=== PATIENT | female | born 1955 | race American Indian/Alaskan Native ===

== ENCOUNTER 2018-09-30 17:10 | Observation (INO) | payer MEDICAID, OTHER ==
[2018-09-30 17:24] VITALS: BMI 21.2
--- NOTE | 2018-09-30 18:16 | ED PDOC ---
Arrival/HPI - History of Present Illness Narrative History of Present Illness (Text): 09/30/18 18:16 Patient is a 63-year-old female with a past medical history significant for early onset dementia. Patient is unable to provide a meaningful history. However, she does denies how do you travel with your head. Patient is only complaining of left hip pain, and right lower back pain at this time. When asked about the fall, patient reports she tripped without any loss of consciousness or trauma to her head. Patient den ies any dizziness, or visual changes. As per EMS report, patient was found down on sidewalk by bystander. Family at bedside reports that patient will frequently wander out of the house. They report that she has been wandering out and getting lost with increasing frequency as of late. <Larry Zheng - Last Filed: 09/30/18 18:23> <Meseret Pinedo - Last Filed: 09/30/18 19:02> - General Chief Complaint: Trauma Time Seen by Provider: 09/30/18 17:20 Past Medical History - Provider Review Nursing Documentation Reviewed: Yes - Reproductive Menopause: Yes - Psychiatric Hx Substance Use: No - Anesthesia Hx Anesthesia: No <Larry Zheng - Last Filed: 09/30/18 18:23> Family/Social History - Physician Review Nursing Documentation Reviewed: Yes Family/Social History: Unknown Family HX Smoking Status: Never Smoked Hx Alcohol Use: No Hx Substance Use: No <Larry Zheng - Last Filed: 09/30/18 18:23> Allergies/Home Meds <Larry Zheng - Last Filed: 09/30/18 18:23> <Meseret Pinedo - Last Filed: 09/30/18 19:02> Allergies/Adverse Reactions: Allergies No Known Allergies Allergy (Verified 09/30/18 17:24) Home Medications: Home Meds Medication Instructions Recorded Confirmed No Known Home Med 09/30/18 09/30/18 Review of Systems - Review of Systems Constitutional: Normal Eyes: Normal ENT: Normal Respiratory: Normal Cardiovascular: Normal Gastrointestinal: Normal Genitourinary Female: Normal Musculoskeletal: Normal Skin: Normal Neurological: Normal Endocrine: Normal Hemo/Lymphatic: Normal Psychiatric: Normal <Larry Zheng - Last Filed: 09/30/18 18:23> Physical Exam Vital Signs Temp Pulse Resp BP Pulse Ox 02/12/19 17:51 99.3 F 09/30/18 17:10 94 H 18 159/87 H 100 Temperature: Afebrile Blood Pressure: Hypertensive Pulse: Regular Respiratory Rate: Normal Appearance: Positive for: Well-Appearing, Non-Toxic, Comfortable Pain Distress: None Mental Status: Positive for: Alert and Oriented X 3 - Systems Exam Head: Present: Atraumatic, Normocephalic Pupils: Present: PERRL Extroacular Muscles: Present: EOMI Conjunctiva: Present: Normal Mouth: Present: Moist Mucous Membranes Neck: Present: Normal Range of Motion Respiratory/Chest: Present: Clear to Auscultation, Good Air Exchange. No: Respiratory Distress, Accessory Muscle Use Cardiovascular: Present: Regular Rate and Rhythm, Normal S1, S2. No: Murmurs Abdomen: No: Tenderness, Distention, Peritoneal Signs Back: Present: Normal Inspection Upper Extremity: Present: Normal Inspection. No: Cyanosis, Edema Lower Extremity: Present: Other (Distal pulses intact bilateral lower extremity, capillary refill is slightly delayed, significant temperature difference is noted at distal foot versus ankle, of note patient came in wearing wet sock) Neurological: Present: GCS=15, CN II-XII Intact, Speech Normal, Other (Patient is tangential, and requires significant re-orientation. History that patient provides is not accurate to a true events.) Skin: Present: Warm, Dry, Normal Color. No: Rashes Psychiatric: Present: Alert, Oriented x 3, Normal Insight, Normal Concentration <Larry Zheng - Last Filed: 09/30/18 18:23> Vital Signs Temp Pulse Resp BP Pulse Ox 09/30/18 17:51 99.3 F 09/30/18 17:10 94 H 18 159/87 H 100 <Meseret Pinedo - Last Filed: 09/30/18 19:02> Medical Decision Making ED Course and Treatment: 09/30/18 18:32 EKG within normal limits no ischemic changes noted CT head, chest x-ray pending Troponin, CBC, CMP pending <Larry Zheng - Last Filed: 09/30/18 18:23> - Lab Interpretations Lab Results: PT 12.9 SECONDS (9.4-12.5) H 09/30/18 18:20 INR 1.16 09/30/18 18:20 APTT 32.3 Seconds (26.9-38.3) 09/30/18 18:20 Total Bilirubin 1.1 mg/dL (0.2-1.3) 09/30/18 18:20 AST 44 U/L (14-36) H 09/30/18 18:20 ALT 26 U/L (7-56) 09/30/18 18:20 Alkaline Phosphatase 101 U/L (38-126) 09/30/18 18:20 Total Protein 7.6 g/dL (5.8-8.3) 09/30/18 18:20 Albumin 4.3 g/dL (3.0-4.8) 09/30/18 18:20 Globulin 3.4 gm/dL 09/30/18 18:20 Albumin/Globulin Ratio 1.3 (1.1-1.8) 09/30/18 18:20 Urine Color Yellow (YELLOW) 09/30/18 18:20 Urine Appearance Clear (CLEAR) 09/30/18 18:20 Urine pH 6.0 (4.7-8.0) 09/30/18 18:20 Ur Specific [place] 1.015 (1.005-1.035) 09/30/18 18:20 Urine Protein Negative mg/dL (<30 mg/dL) 09/30/18 18:20 Urine Glucose (UA) Negative mg/dL (NEGATIVE) 09/30/18 18:20 Urine Ketones Negative mg/dL (NEGATIVE) 09/30/18 18:20 Urine Blood Small (NEGATIVE) H 09/30/18 18:20 Urine Nitrate Negative (NEGATIVE) 09/30/18 18:20 Urine Bilirubin Negative (NEGATIVE) 09/30/18 18:20 Urine Urobilinogen 0.2 E.U./dL (<1 E.U./dL) 09/30/18 18:20 Ur Leukocyte Esterase Small Anurag/uL (NEGATIVE) H 09/30/18 18:20 Urine RBC 5 - 10 /hpf (0-2) H 09/30/18 18:20 Urine WBC 10 - 15 /hpf (0-6) H 09/30/18 18:20 Ur Epithelial Cells 6 - 8 /hpf (0-5) H 09/30/18 18:20 - RAD Interpretation Radiology Orders: 09/30/18 18:12 HEAD W/O CONTRAST [CT] Stat 09/30/18 18:14 CHEST PORTABLE [RAD] Stat - Transfer of Care Patient signed out to Dr:: Arturo Pending Labs:: TSH Pending radiology studies:: CT brain/cxr Other: disposition <Meseret Pinedo - Last Filed: 09/30/18 19:02> - PA / OFFICE COPY SELECTOR / Resident Statement MD/DO has reviewed & agrees with the documentation as recorded. MD/DO has examined the patient and agrees with the treatment plan. <Meseret Pinedo - Last Filed: 09/30/18 19:02> Disposition/Present on Arrival - Present on Arrival History of DVT/PE: No History of Uncontrolled Diabetes: No Urinary Catheter: No History of Decub. Ulcer: No History Surgical Site Infection Following: None <Larry Zheng - Last Filed: 09/30/18 18:23> - Present on Arrival Any Indicators Present on Arrival: No - Disposition Have Diagnosis and Disposition been Completed?: Yes Disposition Time: 19:02 <Meseret Pinedo - Last Filed: 09/30/18 19:02> - Disposition Diagnosis: Altered mental status, Fall Condition: STABLE Forms: [employer] ([place])
[2018-09-30 18:26] LABS: BASO # 0.03 K/mm3 (0.0-2.0); BASO % 0.3 % (0.0-3.0); HEMOGLOBIN 11.9 g/dL (12.0-16.0); LYMPH # 0.8 (1.2-3.4); LYMPH % 7.2 % (22.0-35.0); MEAN CELL VOLUME 92.1 fl (80.0-105.0); MEAN CORPUSCULAR HEMOGLOBIN 31.2 pg (25.0-35.0); MEAN CORPUSCULAR HGB CONC 33.8 g/dl (31.0-37.0); MONO # 0.3 (0.1-0.6); MONO % 2.7 % (1.0-6.0); RBC 3.82 10^6/uL (3.5-6.1); RED CELL DISTRIBUTION WIDTH 13.6 % (11.5-14.5); WHITE BLOOD COUNT 11.4 10^3/uL (4.5-11.0)
[2018-09-30 18:31] LABS: URINE APPEARANCE CLEAR (CLEAR); URINE BILIRUBIN NEGATIVE (NEGATIVE); URINE BLOOD SMALL (NEGATIVE); URINE COLOR YELLOW (YELLOW); URINE GLUCOSE (UA) NEGATIVE (NEGATIVE); URINE LEUKOCYTE ESTERASE SMALL Leu/uL (NEGATIVE); URINE PROTEIN NEGATIVE mg/dL (<30 mg/dL); URINE UROBILINOGEN 0.2 E.U./dL (<1 E.U./dL)
[2018-09-30 18:35] LABS: INR 1.16; PARTIAL THROMBOPLASTIN TIME 32.3 Seconds (26.9-38.3); PROTHROMBIN TIME 12.9 SECONDS (9.4-12.5)
[2018-09-30 18:39] LABS: ALB/GLOB RATIO 1.3 (1.1-1.8); ALBUMIN 4.3 g/dL (3.0-4.8); ALT/SGPT 26 U/L (7-56); AST/SGOT 44 U/L (14-36); BLOOD UREA NITROGEN 11 mg/dL (7-21); CALCIUM 9.8 mg/dL (8.4-10.5); GFR NON-AFRICAN AMERICAN > 60
[2018-09-30 18:49] LABS: TROPONIN I 0.05 ng/mL
[2018-09-30 19:07] LABS: CK-MB 3.5 ng/mL (0.0-3.6)
[2018-09-30] MEDS ORDERED: cefTRIAXone 1 gm 1 GM/100 ML BAG IVPB STA (19:09)
--- NOTE | 2018-09-30 19:11 | ED PDOC ---
Physical Exam Vital Signs Reviewed: Yes Vital Signs Temp Pulse Resp BP Pulse Ox 09/30/18 17:51 99.3 F 09/30/18 17:10 94 H 18 159/87 H 100 Temperature: Afebrile Blood Pressure: Normal Pulse: Regular Respiratory Rate: Normal Appearance: Positive for: Well-Appearing, Non-Toxic, Comfortable Pain Distress: None Mental Status: Positive for: other (AAx2) Finger Stick Blood Glucose: 114 - Systems Exam Head: Present: Atraumatic, Normocephalic Pupils: Present: PERRL Extroacular Muscles: Present: EOMI Conjunctiva: Present: Normal Mouth: Present: Moist Mucous Membranes Respiratory/Chest: Present: Clear to Auscultation, Good Air Exchange. No: Respiratory Distress, Accessory Muscle Use Cardiovascular: Present: Regular Rate and Rhythm, Normal S1, S2. No: Murmurs Abdomen: No: Tenderness, Distention, Peritoneal Signs Upper Extremity: Present: Normal Inspection. No: Cyanosis, Edema Lower Extremity: Present: Other (Distal pulses intact) Neurological: Present: Other (Limited secondary to dementia) Skin: Present: Warm, Dry, Normal Color. No: Rashes Psychiatric: Present: Alert Medical Decision Making ED Course and Treatment: 09/30/18 19:10 Case endorsed to me by Dr. Pinedo, who evaluated patient with resident, for pending Labs, Imaging, reassessment and final disposition. Patient is a 63 year old female who presented to the ED earlier s/p fall. Patient is currently resting in bed in no acute distress. Patient presents no new medical complaints. 09/30/18 19:22 CT of head reviewed by radiologist, shows no acute intracranial abnormality. 09/30/18 20:[address] Massey and medical operations supervisor, who aware and agree with plan. Accepts pt in hospitalist service. Pt will go to Telemetry for AMS, el evated troponin, and UTI. - Lab Interpretations Lab Results: PT 12.9 SECONDS (9.4-12.5) H 09/30/18 18:20 INR 1.16 09/30/18 18:20 APTT 32.3 Seconds (26.9-38.3) 09/30/18 18:20 Troponin I 0.05 ng/mL 09/30/18 18:20 Total Bilirubin 1.1 mg/dL (0.2-1.3) 09/30/18 18:20 AST 44 U/L (14-36) H 09/30/18 18:20 ALT 26 U/L (7-56) 09/30/18 18:20 Alkaline Phosphatase 101 U/L (38-126) 09/30/18 18:20 Total Protein 7.6 g/dL (5.8-8.3) 09/30/18 18:20 Albumin 4.3 g/dL (3.0-4.8) 09/30/18 18:20 Globulin 3.4 gm/dL 09/30/18 18:20 Albumin/Globulin Ratio 1.3 (1.1-1.8) 09/30/18 18:20 Urine Color Yellow (YELLOW) 09/30/18 18:20 Urine Appearance Clear (CLEAR) 09/30/18 18:20 Urine pH 6.0 (4.7-8.0) 09/30/18 18:20 Ur Specific [place] 1.015 (1.005-1.035) 09/30/18 18:20 Urine Protein Negative mg/dL (<30 mg/dL) 09/30/18 18:20 Urine Glucose (UA) Negative mg/dL (NEGATIVE) 09/30/18 18:20 Urine Ketones Negative mg/dL (NEGATIVE) 09/30/18 18:20 Urine Blood Small (NEGATIVE) H 09/30/18 18:20 Urine Nitrate Negative (NEGATIVE) 09/30/18 18:20 Urine Bilirubin Negative (NEGATIVE) 09/30/18 18:20 Urine Urobilinogen 0.2 E.U./dL (<1 E.U./dL) 09/30/18 18:20 Ur Leukocyte Esterase Small Anurag/uL (NEGATIVE) H 09/30/18 18:20 Urine RBC 5 - 10 /hpf (0-2) H 09/30/18 18:20 Urine WBC 10 - 15 /hpf (0-6) H 09/30/18 18:20 Ur Epithelial Cells 6 - 8 /hpf (0-5) H 09/30/18 18:20 - RAD Interpretation Radiology Orders: 09/30/18 18:12 HEAD W/O CONTRAST [CT] Stat 09/30/18 18:14 CHEST PORTABLE [RAD] Stat - Scribe Statement The provider has reviewed the documentation as recorded by the Scribe Delaney Seaman. All medical record entries made by the To[place]armita were at my direction and personally dictated by me. I have reviewed the chart and agree that the record accurately reflects my personal performance of the history, physical exam, medical decision making, and the department course for this patient. I have also personally directed, reviewed, and agree with the discharge instructions and disposition. Disposition/Present on Arrival - Present on Arrival Any Indicators Present on Arrival: No History of DVT/PE: No History of Uncontrolled Diabetes: No Urinary Catheter: No History of Decub. Ulcer: No History Surgical Site Infection Following: None - Disposition Have Diagnosis and Disposition been Completed?: Yes Diagnosis: Altered mental status, Fall Disposition: HOSPITALIZED Disposition Time: 20:25 Patient Problems: Current Active Problems Problem Status Onset Altered mental status Acute Fall Acute Condition: STABLE
[2018-09-30 19:20] LABS: BARBITURATES, UR NEGATIVE (NEGATIVE); BENZODIAZEPINES, UR NEGATIVE (NEGATIVE); OPIATES, UR NEGATIVE (NEGATIVE); PHENCYCLIDINE, UR NEGATIVE (NEGATIVE)
[2018-09-30] MEDS ORDERED: Metoprolol Succinate 25 mg XL Tab PO STA (20:16)
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
[2018-09-30 23:14] VITALS: O2SAT 100
[2018-10-01 06:19] VITALS: BP 138/79
[2018-10-01 07:03] LABS: BASO # 0.03 K/mm3 (0.0-2.0); BASO % 0.5 % (0.0-3.0); HEMOGLOBIN 11.4 g/dL (12.0-16.0); LYMPH # 1.5 (1.2-3.4); LYMPH % 23.5 % (22.0-35.0); MEAN CELL VOLUME 92.5 fl (80.0-105.0); MEAN CORPUSCULAR HEMOGLOBIN 30.5 pg (25.0-35.0); MEAN CORPUSCULAR HGB CONC 32.9 g/dl (31.0-37.0); MEAN PLATELET VOLUME 9.8 fl (7.0-11.0); MONO # 0.4 (0.1-0.6); MONO % 5.8 % (1.0-6.0); RBC 3.74 10^6/uL (3.5-6.1); RED CELL DISTRIBUTION WIDTH 13.8 % (11.5-14.5); WHITE BLOOD COUNT 6.2 10^3/uL (4.5-11.0)
[2018-10-01 07:31] LABS: TROPONIN I 0.07 ng/mL
[2018-10-01 07:39] LABS: BLOOD UREA NITROGEN 9 mg/dL (7-21); CALCIUM 9.7 mg/dL (8.4-10.5); GFR NON-AFRICAN AMERICAN > 60; HDL CHOLESTEROL 82 mg/dL (29-60)
[2018-10-01 07:51] LABS: LDL CHOLESTEROL 98 mg/dL (0-129)
[2018-10-01 07:57] LABS: IRON 51 ug/dL (45-180)
[2018-10-01 07:58] LABS: CK-MB 5.9 ng/mL (0.0-3.6)
[2018-10-01] MEDS ORDERED: Metoprolol Succinate 25 mg XL Tab PO SCH (08:00)
[2018-10-01 08:06] LABS: % IRON SATURATION 17 % (20-55); TOTAL IRON BINDING CAPACITY 307 ug/dL (265-497)
[2018-10-01] MEDS ORDERED: Potassium Chloride 20 mEq ER Tab PO STA (08:43)
--- NOTE | 2018-10-01 08:49 | CT ---
Date of service: 09/30/2018 PROCEDURE: CT HEAD WITHOUT CONTRAST. HISTORY: fall/ ams COMPARISON: None available. TECHNIQUE: Axial computed tomography images were obtained through the head/brain without intravenous contrast. Radiation dose: Total exam DLP = 918.82 mGy-cm. This CT exam was performed using one or more of the following dose reduction techniques: Automated exposure control, adjustment of the mA and/or kV according to patient size, and/or use of iterative reconstruction technique. FINDINGS: HEMORRHAGE: No intracranial hemorrhage. BRAIN: There are mild chronic microangiopathic changes. There is no mass, mass effect or abnormal extra-axial fluid collection. There is no territorial infarction. The midline sagittal structures are normal. VENTRICLES: There is moderate age-related global parenchymal volume loss and proportionate enlargement of the ventricles and cortical sulci. CALVARIUM: There is no calvarial fracture or extracranial soft tissue swelling. PARANASAL SINUSES: Predominantly clear. MASTOID AIR CELLS: Predominantly clear. OTHER FINDINGS: None. IMPRESSION: No acute intracranial abnormality. Mild chronic microangiopathic changes and mild age-related global parenchymal volume loss.
--- NOTE | 2018-10-01 09:33 | CARD ---
APPROVED REPORT Date of service: 09/30/2018 EKG Measurement Heart [id number] <Conclusion> Normal sinus rhythm Normal ECG
--- NOTE | 2018-10-01 09:46 | RAD ---
Date of service: 09/30/2018 HISTORY: fall COMPARISON: No prior. FINDINGS: LUNGS: No active pulmonary disease. PLEURA: No significant pleural effusion identified, no pneumothorax apparent. CARDIOVASCULAR: No aortic atherosclerotic calcification present. Normal cardiac size. No pulmonary vascular congestion. OSSEOUS STRUCTURES: No significant abnormalities. VISUALIZED UPPER ABDOMEN: Normal. OTHER FINDINGS: None. IMPRESSION: No active disease.
--- NOTE | 2018-10-01 11:34 | RAD ---
PROCEDURE: Left Hand Radiographs. HISTORY: Contracted 3rd, 4th and 5th fingers, r/o fractures COMPARISON: None. FINDINGS: BONES: There is diffuse bone demineralization. There is no acute displaced fracture or bone destruction. There is fixed flexion deformities in the 3rd and 4th digits. JOINTS: Normal. No osteoarthritic changes. SOFT TISSUES: Normal. OTHER FINDINGS: None. IMPRESSION: Fixed flexion deformities in the 3rd and 4th digits. No acute fracture or dislocation.
[2018-10-01 12:43] VITALS: RESP 18; TEMP 98
[2018-10-01 13:15] LABS: FERRITIN 57.8 ng/mL
[2018-10-01 13:45] LABS: FOLATE 19.2 ng/mL
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
[2018-10-01 14:24] VITALS: PULSE 69
[2018-10-01 14:35] LABS: URINE BILIRUBIN NEGATIVE (NEGATIVE); URINE BLOOD SMALL (NEGATIVE); URINE GLUCOSE (UA) NEGATIVE (NEGATIVE); URINE LEUKOCYTE ESTERASE NEGATIVE Leu/uL (NEGATIVE); URINE PROTEIN NEGATIVE mg/dL (<30 mg/dL); URINE UROBILINOGEN 0.2 E.U./dL (<1 E.U./dL)
[2018-10-01 14:38] LABS: URINE APPEARANCE CLEAR (CLEAR); URINE COLOR YELLOW (YELLOW)
[2018-10-01 14:41] LABS: URINE BACTERIA MOD /hpf; URINE WBC 0 - 2 /hpf (0-6)
--- NOTE | 2018-10-01 18:02 | CP.PCM.DIS ---
<Chetan Santos - Last Filed: 10/01/18 17:57> Provider - Provider Date of Admission: 09/30/18 19:28 Attending physician: Dustin Chaidez MD Primary care physician: none Consults: 09/30/18 20:23 Neurology Consult Routine Comment: Consulting Provider: Fabrizio Chiu Consulting Physician: Fabrizio Chiu Reason for Consult: AMS/dementia 09/30/18 22:57 Nursing Referral for Palliative Care Routine Comment: Pallitive score: 5 Physician Instructions: Reason For Exam: Protocol 09/30/18 23:00 Case Management Referral Routine Comment: Daughter request for assistance at home. Physician Instructions: Reason For Exam: Protocol Reason for Referral: Discharge Planning 09/30/18 23:04 Social Work Referral Routine Comment: [place] Risk Assessment score: 8 Physician Instructions: Reason For Exam: Protocol Time Spent in preparation of Discharge (in minutes): 60 Diagnosis - Discharge Diagnosis (1) Fall Status: Acute Hospital Course - Lab Results Lab Results: Most Recent Lab Values WBC 6.2 10^3/uL (4.5-11.0) D 10/01/18 06:30 RBC 3.74 10^6/uL (3.5-6.1) 10/01/18 06:30 Hgb 11.4 g/dL (12.0-16.0) L 10/01/18 06:30 Hct 34.6 % (36.0-48.0) L 10/01/18 06:30 MCV 92.5 fl (80.0-105.0) 10/01/18 06:30 MCH 30.5 pg (25.0-35.0) 10/01/18 06:30 MCHC 32.9 g/dl (31.0-37.0) 10/01/18 06:30 RDW 13.8 % (11.5-14.5) 10/01/18 06:30 Plt Count 254 10^3/uL (120.0-450.0) 10/01/18 06:30 MPV 9.8 fl (7.0-11.0) 10/01/18 06:30 Neut % (Auto) 70.2 % (50.0-68.0) H 10/01/18 06:30 Lymph % (Auto) 23.5 % (22.0-35.0) 10/01/18 06:30 Taylor % (Auto) 5.8 % (1.0-6.0) 10/01/18 06:30 Eos % (Auto) 0.0 % (1.5-5.0) L 10/01/18 06:30 Baso % (Auto) 0.5 % (0.0-3.0) 10/01/18 06:30 Lymph # (Auto) 1.5 (1.2-3.4) 10/01/18 06:30 Taylor # (Auto) 0.4 (0.1-0.6) 10/01/18 06:30 Eos # (Auto) 0.0 (0.0-0.7) 10/01/18 06:30 Baso # (Auto) 0.03 K/mm3 (0.0-2.0) 10/01/18 06:30 Absolute Neuts (auto) 4.32 (1.4-6.5) 10/01/18 06:30 PT 12.9 SECONDS (9.4-12.5) H 09/30/18 18:20 INR 1.16 09/30/18 18:20 APTT 32.3 Seconds (26.9-38.3) 09/30/18 18:20 Sodium 140 mmol/L (132-148) 10/01/18 06:30 Potassium 3.5 mmol/L (3.6-5.0) L 10/01/18 06:30 Chloride 106 mmol/L (98-107) 10/01/18 06:30 Carbon Dioxide 31 mmol/L (21-33) 10/01/18 06:30 Anion Gap 7 (10-20) L 10/01/18 06:30 BUN 9 mg/dL (7-21) 10/01/18 06:30 Creatinine 0.7 mg/dl (0.7-1.2) 10/01/18 06:30 Est GFR ( Amer) > 60 10/01/18 06:30 Est GFR (Non-Af Amer) > 60 10/01/18 06:30 POC Glucose (mg/dL) 114 mg/dL (65-110) H 09/30/18 18:15 Random Glucose 98 mg/dL (70-110) 10/01/18 06:30 Hemoglobin A1c 6.1 % (4.2-6.5) 10/01/18 06:30 Calcium 9.7 mg/dL (8.4-10.5) 10/01/18 06:30 Phosphorus 3.0 mg/dL (2.5-4.5) 09/30/18 18:20 Magnesium 1.9 mg/dL (1.7-2.2) 09/30/18 18:20 Iron 51 ug/dL (45-180) 10/01/18 06:30 TIBC 307 ug/dL (265-497) 10/01/18 06:30 % Saturation 17 % (20-55) L 10/01/18 06:30 Ferritin 57.8 ng/mL 10/01/18 06:30 Total Bilirubin 1.1 mg/dL (0.2-1.3) 09/30/18 18:20 AST 44 U/L (14-36) H 09/30/18 18:20 ALT 26 U/L (7-56) 09/30/18 18:20 Alkaline Phosphatase 101 U/L (38-126) 09/30/18 18:20 Lactate Dehydrogenase 652 U/L (333-699) 09/30/18 18:20 Total Creatine Kinase 615 U/L (35-230) H 10/01/18 06:30 CK-MB (CK-2) 5.9 ng/mL (0.0-3.6) H 10/01/18 06:30 CK-MB (CK-2) % 1.0 % (2.5-3.0) L 10/01/18 06:30 Troponin I 0.07 ng/mL 10/01/18 06:30 Total Protein 7.6 g/dL (5.8-8.3) 09/30/18 18:20 Albumin 4.3 g/dL (3.0-4.8) 09/30/18 18:20 Globulin 3.4 gm/dL 09/30/18 18:20 Albumin/Globulin Ratio 1.3 (1.1-1.8) 09/30/18 18:20 Triglycerides 29 mg/dL (35-160) L 10/01/18 06:30 Cholesterol 224 mg/dL (130-200) H 10/01/18 06:30 LDL Cholesterol Direct 98 mg/dL (0-129) 10/01/18 06:30 HDL Cholesterol 82 mg/dL (29-60) H 10/01/18 06:30 Vitamin B12 405 pg/mL (239-931) 10/01/18 06:30 25-OH Vitamin D Total 31.5 NG/ML (30.0-100.0) 10/01/18 06:30 Folate 19.2 ng/mL 10/01/18 06:30 TSH 3rd Generation 3.50 mIU/mL (0.46-4.68) 09/30/18 18:20 Urine Color Yellow (YELLOW) 10/01/18 14:20 Urine Appearance Clear (CLEAR) 10/01/18 14:20 Urine pH 7.0 (4.7-8.0) 10/01/18 14:20 Ur Specific Gratis 1.020 (1.005-1.035) 10/01/18 14:20 Urine Protein Negative mg/dL (<30 mg/dL) 10/01/18 14:20 Urine Glucose (UA) Negative mg/dL (NEGATIVE) 10/01/18 14:20 Urine Ketones Trace mg/dL (NEGATIVE) H 10/01/18 14:20 Urine Blood Small (NEGATIVE) H 10/01/18 14:20 Urine Nitrate Negative (NEGATIVE) 10/01/18 14:20 Urine Bilirubin Negative (NEGATIVE) 10/01/18 14:20 Urine Urobilinogen 0.2 E.U./dL (<1 E.U./dL) 10/01/18 14:20 Ur Leukocyte Esterase Negative Anurag/uL (NEGATIVE) 10/01/18 14:20 Urine RBC 5 - 10 /hpf (0-2) H 10/01/18 14:20 Urine WBC 0 - 2 /hpf (0-6) 10/01/18 14:20 Ur Epithelial Cells 3 - 4 /hpf (0-5) 10/01/18 14:20 Urine Bacteria Mod /hpf (NONE) 10/01/18 14:20 Urine Opiates Screen Negative (NEGATIVE) 09/30/18 18:40 Urine Methadone Screen Negative (NEGATIVE) 09/30/18 18:40 Ur Barbiturates Screen Negative (NEGATIVE) 09/30/18 18:40 Ur Phencyclidine Scrn Negative (NEGATIVE) 09/30/18 18:40 Ur Amphetamines Screen Negative (NEGATIVE) 09/30/18 18:40 U Benzodiazepines Scrn Negative (NEGATIVE) 09/30/18 18:40 U Oth Cocaine Metabols Negative (NEGATIVE) 09/30/18 18:40 U Cannabinoids Screen Negative (NEGATIVE) 09/30/18 18:40 Alcohol, Quantitative < 10 mg/dL (0-10) 09/30/18 18:20 - Hospital Course Hospital Course: Chetan Santos, PGY-1, Internal Medicine Discharge Summary for Dr. Chaidez 63 year old female with no past medical history presented to the ED by EMS after they found her fallen on the sidewalk by a bystander. Fall was not witnessed and patient was unsure if she hit her head. Son at bedside reported patient was diagnosed with dementia 3 years ago and patient had been wandering increasingly for the past 6 months and getting lost more often. Patient at bedside was AAOx1 and anxious. Head CT on 09/30 showed no acute intracranial findings and only mild age-related global atrophy. CXR showed no acute findings and ECG showed normal sinus rhythm. Hand XR showed slight flexion deformities in 3rd & 4th digits but NO fracture. Patient was found to have indeterminate troponin of 0.05 on admission. Troponin initially trended up to 0.08 then down to 0.07 on 10/01. ECG showed NSR. BP was 157/96 on admission. SBP in prior admissions were in 150s. Patient was started on metoprolol succinate 25 mg daily for indeterminate troponin and blood pressure with improvement in blood pressure. Cholesterol was high on lipid panel. Patient was given aspirin 81 mg daily on admission and discharged with lipitor. Patient was found to have Normocytic Anemia. Hgb was 11.9 on admission. Patient was worked up and found to be have normal Iron, TIBC, ferritin, vitamin B12, folate. Labs showed elevated CK of 306 that trended to 615 likely secondary to fall. BUN/Cr & electrolytes were within normal limits, so doubt rhabdomyolysis. Pt showed Abnormal UA on 09/30 though likely due to impure UA. Repeat UA on 10/01 showed NEGATIVE leukocyte esterase, nitrite, WBC, epithelial cells and only small RBC. Leukocytosis trended down from 11.4 to 6.2. Patient was stable and ready for discharge. She was told to follow up with PCP within 1-2 weeks. She was told to take new medication Aspirin, Atorvastatin, & Metoprolol as prescribed. In addition, she was told to return to the emergency department if she had any recurring or new concerning symptoms. - Date & Time of H&P Date of H&P: 10/01/18 Time of H&P: 18:02 Discharge Exam - Head Exam Head Exam: ATRAUMATIC, NORMAL INSPECTION - Eye Exam Eye Exam: EOMI, PERRL - ENT Exam ENT Exam: Mucous Membranes Moist - Respiratory Exam Respiratory Exam: Clear to PA & Lateral, NORMAL BREATHING PATTERN - Cardiovascular Exam Cardiovascular Exam: REGULAR RHYTHM, RRR - GI/Abdominal Exam GI & Abdominal Exam: Normal Bowel Sounds, Soft. absent: Tenderness - Extremities Exam Additional comments: contracted left 3rd, 4th, and 5th digits - Neurological Exam Neurological exam: Alert, Altered (AAOx1), CN II-XII Intact - Psychiatric Exam Psychiatric exam: Anxious - Skin Skin Exam: Dry, Intact, Normal Color Discharge Plan - Discharge Medications Prescriptions: Aspirin [Aspirin Chewable] 81 mg PO DAILY 30 Days #30 chew Atorvastatin [Lipitor] 40 mg PO DIN 30 Days #30 tab Donepezil [Aricept] 5 mg PO HS 30 Days #30 tab Metoprolol Succinate XL [Toprol XL] 25 mg PO BRK 30 Days #30 tab - Follow Up Plan Condition: STABLE Disposition: HOME/ ROUTINE Instructions: Preventing Falls in the Older Adult, Altered Mental Status (GEN) Additional Instructions: Patient is medically stable and clear for discharge. Please follow up with PCP within 1-2 weeks for follow up from fall, hypertension, dementia. Please take all medications as prescribed. Please return to the emergency department if you have any new or worsening symptoms Referrals: [facility] [Outside] <Dustin Chaidez - Last Filed: 10/02/18 09:12> Provider - Provider Date of Admission: 09/30/18 19:28 Attending physician: Dustin Chaidez MD Consults: 09/30/18 20:23 Neurology Consult Routine Comment: Consulting Provider: Fabrizio Chiu Consulting Physician: Fabrizio Chiu Reason for Consult: AMS/dementia 09/30/18 22:57 Nursing Referral for Palliative Care Routine Comment: Pallitive score: 5 Physician Instructions: Reason For Exam: Protocol 09/30/18 23:00 Case Management Referral Routine Comment: Daughter request for assistance at home. Physician Instructions: Reason For Exam: Protocol Reason for Referral: Discharge Planning 09/30/18 23:04 Social Work Referral Routine Comment: [place] Risk Assessment score: 8 Physician Instructions: Reason For Exam: Protocol Hospital Course - Lab Results Lab Results: Micro Results 09/30/18 19:55 Blood-Venous Blood Culture - Preliminary NO GROWTH AFTER 24 HOURS 09/30/18 19:30 Blood-Venous Blood Culture - Preliminary NO GROWTH AFTER 24 HOURS Most Recent Lab Values WBC 6.2 10^3/uL (4.5-11.0) D 10/01/18 06:30 RBC 3.74 10^6/uL (3.5-6.1) 10/01/18 06:30 Hgb 11.4 g/dL (12.0-16.0) L 10/01/18 06:30 Hct 34.6 % (36.0-48.0) L 10/01/18 06:30 MCV 92.5 fl (80.0-105.0) 10/01/18 06:30 MCH 30.5 pg (25.0-35.0) 10/01/18 06:30 MCHC 32.9 g/dl (31.0-37.0) 10/01/18 06:30 RDW 13.8 % (11.5-14.5) 10/01/18 06:30 Plt Count 254 10^3/uL (120.0-450.0) 10/01/18 06:30 MPV 9.8 fl (7.0-11.0) 10/01/18 06:30 Neut % (Auto) 70.2 % (50.0-68.0) H 10/01/18 06:30 Lymph % (Auto) 23.5 % (22.0-35.0) 10/01/18 06:30 Taylor % (Auto) 5.8 % (1.0-6.0) 10/01/18 06:30 Eos % (Auto) 0.0 % (1.5-5.0) L 10/01/18 06:30 Baso % (Auto) 0.5 % (0.0-3.0) 10/01/18 06:30 Lymph # (Auto) 1.5 (1.2-3.4) 10/01/18 06:30 Taylor # (Auto) 0.4 (0.1-0.6) 10/01/18 06:30 Eos # (Auto) 0.0 (0.0-0.7) 10/01/18 06:30 Baso # (Auto) 0.03 K/mm3 (0.0-2.0) 10/01/18 06:30 Absolute Neuts (auto) 4.32 (1.4-6.5) 10/01/18 06:30 PT 12.9 SECONDS (9.4-12.5) H 09/30/18 18:20 INR 1.16 09/30/18 18:20 APTT 32.3 Seconds (26.9-38.3) 09/30/18 18:20 Sodium 140 mmol/L (132-148) 10/01/18 06:30 Potassium 3.5 mmol/L (3.6-5.0) L 10/01/18 06:30 Chloride 106 mmol/L (98-107) 10/01/18 06:30 Carbon Dioxide 31 mmol/L (21-33) 10/01/18 06:30 Anion Gap 7 (10-20) L 10/01/18 06:30 BUN 9 mg/dL (7-21) 10/01/18 06:30 Creatinine 0.7 mg/dl (0.7-1.2) 10/01/18 06:30 Est GFR ( Amer) > 60 10/01/18 06:30 Est GFR (Non-Af Amer) > 60 10/01/18 06:30 POC Glucose (mg/dL) 114 mg/dL (65-110) H 09/30/18 18:15 Random Glucose 98 mg/dL (70-110) 10/01/18 06:30 Hemoglobin A1c 6.1 % (4.2-6.5) 10/01/18 06:30 Calcium 9.7 mg/dL (8.4-10.5) 10/01/18 06:30 Phosphorus 3.0 mg/dL (2.5-4.5) 09/30/18 18:20 Magnesium 1.9 mg/dL (1.7-2.2) 09/30/18 18:20 Iron 51 ug/dL (45-180) 10/01/18 06:30 TIBC 307 ug/dL (265-497) 10/01/18 06:30 % Saturation 17 % (20-55) L 10/01/18 06:30 Ferritin 57.8 ng/mL 10/01/18 06:30 Total Bilirubin 1.1 mg/dL (0.2-1.3) 09/30/18 18:20 AST 44 U/L (14-36) H 09/30/18 18:20 ALT 26 U/L (7-56) 09/30/18 18:20 Alkaline Phosphatase 101 U/L (38-126) 09/30/18 18:20 Lactate Dehydrogenase 652 U/L (333-699) 09/30/18 18:20 Total Creatine Kinase 615 U/L (35-230) H 10/01/18 06:30 CK-MB (CK-2) 5.9 ng/mL (0.0-3.6) H 10/01/18 06:30 CK-MB (CK-2) % 1.0 % (2.5-3.0) L 10/01/18 06:30 Troponin I 0.07 ng/mL 10/01/18 06:30 Total Protein 7.6 g/dL (5.8-8.3) 09/30/18 18:20 Albumin 4.3 g/dL (3.0-4.8) 09/30/18 18:20 Globulin 3.4 gm/dL 09/30/18 18:20 Albumin/Globulin Ratio 1.3 (1.1-1.8) 09/30/18 18:20 Triglycerides 29 mg/dL (35-160) L 10/01/18 06:30 Cholesterol 224 mg/dL (130-200) H 10/01/18 06:30 LDL Cholesterol Direct 98 mg/dL (0-129) 10/01/18 06:30 HDL Cholesterol 82 mg/dL (29-60) H 10/01/18 06:30 Vitamin B12 405 pg/mL (239-931) 10/01/18 06:30 25-OH Vitamin D Total 31.5 NG/ML (30.0-100.0) 10/01/18 06:30 Folate 19.2 ng/mL 10/01/18 06:30 TSH 3rd Generation 3.50 mIU/mL (0.46-4.68) 09/30/18 18:20 Urine Color Yellow (YELLOW) 10/01/18 14:20 Urine Appearance Clear (CLEAR) 10/01/18 14:20 Urine pH 7.0 (4.7-8.0) 10/01/18 14:20 Ur Specific Gratis 1.020 (1.005-1.035) 10/01/18 14:20 Urine Protein Negative mg/dL (<30 mg/dL) 10/01/18 14:20 Urine Glucose (UA) Negative mg/dL (NEGATIVE) 10/01/18 14:20 Urine Ketones Trace mg/dL (NEGATIVE) H 10/01/18 14:20 Urine Blood Small (NEGATIVE) H 10/01/18 14:20 Urine Nitrate Negative (NEGATIVE) 10/01/18 14:20 Urine Bilirubin Negative (NEGATIVE) 10/01/18 14:20 Urine Urobilinogen 0.2 E.U./dL (<1 E.U./dL) 10/01/18 14:20 Ur Leukocyte Esterase Negative Anurag/uL (NEGATIVE) 10/01/18 14:20 Urine RBC 5 - 10 /hpf (0-2) H 10/01/18 14:20 Urine WBC 0 - 2 /hpf (0-6) 10/01/18 14:20 Ur Epithelial Cells 3 - 4 /hpf (0-5) 10/01/18 14:20 Urine Bacteria Mod /hpf (NONE) 10/01/18 14:20 Urine Opiates Screen Negative (NEGATIVE) 09/30/18 18:40 Urine Methadone Screen Negative (NEGATIVE) 09/30/18 18:40 Ur Barbiturates Screen Negative (NEGATIVE) 09/30/18 18:40 Ur Phencyclidine Scrn Negative (NEGATIVE) 09/30/18 18:40 Ur Amphetamines Screen Negative (NEGATIVE) 09/30/18 18:40 U Benzodiazepines Scrn Negative (NEGATIVE) 09/30/18 18:40 U Oth Cocaine Metabols Negative (NEGATIVE) 09/30/18 18:40 U Cannabinoids Screen Negative (NEGATIVE) 09/30/18 18:40 Alcohol, Quantitative < 10 mg/dL (0-10) 09/30/18 18:20 Attending/Attestation - Attestation I have personally seen and examined this patient.: Yes I have fully participated in the care of the patient.: Yes I have reviewed all pertinent clinical information, including history, physical exam and plan: Yes Notes (Text): 10/01/18 63 year old female with past medical history of dementia who was brought in after fall outside while wondering on [place] streets. CT head was negative for acute findings. Cardiac enzymes were indeterminate. She denied any chest pain or shortness of breath. EKG was negative for ischemic changes. She was seen by neurology who recommended aricept and outpatient follow up. Patient was also seen by PT who recommended home with family support. green end worker evaluation was appreciated for referral for daycare centers. Patient is discharged home to follow up with pmd. Follow up with neurology. Dustin Chaidez MD Hospitalist.
== END 2018-10-01 18:50 | disposition home or self-care (01) ==
LOC: ED 17:10 → ERH 19:28 → 2RNO 21:32
PROVIDERS: ADMIT Internal Medicine; ATTEND Internal Medicine
DX: G30.0 Alzheimer's disease with early onset (principal); F02.81 Dementia in other diseases classified elsewhere, unspecified severity, with behavioral disturbance; Z91.83 Wandering in diseases classified elsewhere; W19.XXXA Unspecified fall, initial encounter; D72.829 Elevated white blood cell count, unspecified; D64.9 Anemia, unspecified; Z81.8 Family history of other mental and behavioral disorders; Z90.710 Acquired absence of both cervix and uterus; Z91.410 Personal history of adult physical and sexual abuse
CPT/HCPCS: 36415; 70450; 71045; 73130; 80048; 80053; 80061; 81001; 82306; 82550; 82553; 82607; 82728; 82746; 82948; 83036; 83540; 83550; 83615; 83735; 84100; 84443; 84484; 85025; 85610; 85730; 87040; 87086; 93005; 97116; 97161; 99284; G0378; G0480; G8978; G8979; G8980; J0696